=== PATIENT | male | born 1960 | race Caucasian/White ===

== ENCOUNTER 2019-01-15 18:32 | Inpatient (IN) | payer OTHER ==
[~2019-01-15] VITALS: Ht 180.3 cm; Wt 100.0 kg
[~2019-01-15 18:32] MED LIST: ACET500T98 PO; AMLO-147 PO; CLON2TAB12 PO; DIVA-48 PO; DOCU100C59 PO; ENAL10TA PO; ENAL20TA PO; ETOMIDATE 20 MG INJ ONE; GLIP5TAB13 PO; METF100010 PO; QUET400T11 PO; SERT-165 PO; TAMS-14 PO; TEMA-106 PO
[2019-01-15] MEDS ORDERED: SOD CHLORIDE 0.9% 1,000 ML IV STA ×3 (18:39→20:56)
[2019-01-15] MEDS ORDERED: LORAZEPAM 2 MG INJ IV STA (18:39)
[2019-01-15] MEDS ORDERED: PROPOFOL 100 ML IV STA (19:14)
[2019-01-15] MEDS ORDERED: PROPOFOL 100 ML ONE (19:16)
[2019-01-15] MEDS ORDERED: FENTAnyl (DRIP) 1000 mcg/100mL 100 ML IV ONE (19:30)
[2019-01-15] MEDS ORDERED: ROCURONIUM 50 MG INJ IV ONE (19:30)
[2019-01-15] MEDS ORDERED: ETOMIDATE 20 MG INJ IV ONE (19:30)
[2019-01-15] MEDS ORDERED: CEFTRIAXONE 2 GM/50 ML (PMX) 50 ML IVPB STA (19:51)
[2019-01-15] MEDS ORDERED: VANCOMYCIN 1 GM (PMX) 250 ML IVPB STA (19:51)
[2019-01-15] MEDS ORDERED: DANTROLENE 20 MG INJ IV STA (19:57)
[2019-01-15] MEDS ORDERED: DEXAMETHASONE 10 MG/ML 1 ML INJ IV ONE (20:00)
[2019-01-15] MEDS ORDERED: ACETAMINOPHEN 650 MG SUPP PR ONE ×2 (20:11→20:30)
[2019-01-15] MEDS ORDERED: DANTROLENE SODIUM 250 MG VIAL IV STA (20:14)
[2019-01-15] MEDS ORDERED: IPRATROPIUM (NEB) 0.5 MG/2.5 ML AMP INH PRN (21:00)
[2019-01-15] MEDS ORDERED: ALBUTEROL HFA 8 GM INHALER INH PRN (21:00)
[2019-01-15] MEDS ORDERED: IPRATROPIUM (HFA) 12.9 GM INHALER INH PRN (21:00)
[2019-01-15] MEDS ORDERED: MIDAZOLAM (DRIP) 50 mg/50 mL 50 ML IV STA (21:15)
[2019-01-15] MEDS: ENOXAPARIN 40 MG/0.4 ML SYG SC SCH (22:00)
[2019-01-15] MEDS ORDERED: VANCOMYCIN IV PER PHARMACY XX SCH (22:00)
[2019-01-15] MEDS ORDERED: SOD CHLORIDE 0.9% 1,000 ML IV ONE (23:30)
[2019-01-16] VITALS (57 sets, daily range): BP systolic 97–163; BP diastolic 63–112; PULSE 57–98; RESP 15–26; Ht 180.3 cm; Wt 100.0 kg
[2019-01-16] MEDS: PIPER-TAZO 3.375 GM IV (PMX) 100 ML IVPB SCH ×4 (00:23→17:01)
[2019-01-16] MEDS: SOD CHLORIDE 0.9% 1,000 ML IV SCH ×5 (00:27→17:01)
[2019-01-16] MEDS ORDERED: VANCOMYCIN 1 GM in 250 ML IVPB ONE (01:00)
[2019-01-16] MEDS: INSULIN ASPART [NOVOLOG] 3 ML PEN SC SCH ×6 (01:08→21:00)
[2019-01-16] MEDS: ACCU-CHEK XX SCH (01:49)
[2019-01-16] MEDS ORDERED: DANTROLENE 20 MG INJ IV SCH (02:00)
[2019-01-16] MEDS ORDERED: BROMOCRIPTINE 2.5 MG TAB NGT ONE (02:00)
[2019-01-16] MEDS ORDERED: DANTROLENE SODIUM 250 MG VIAL IV SCH (05:00)
[2019-01-16] MEDS: PANTOPRAZOLE 40 MG INJ IV SCH (07:04)
[2019-01-16] MEDS: ENOXAPARIN 40 MG/0.4 ML SYG SC SCH (08:29)
[2019-01-16] MEDS: MIDAZOLAM (DRIP) 50 mg/50 mL 50 ML IV SCH ×2 (10:37→18:24)
[2019-01-16] MEDS ORDERED: VANCOMYCIN 1 GM 250 ML IVPB SCH (14:00)
[2019-01-16] MEDS ORDERED: VANCOMYCIN 1.25 GM/NS 250 ML 250 ML IVPB SCH (14:00)
[2019-01-16] MEDS ORDERED: HEPARIN 5,000 UNIT/1 ML VIAL SC SCH (22:00)
[2019-01-17] VITALS (36 sets, daily range): BP systolic 120–174; BP diastolic 69–131; PULSE 61–96; RESP 14–30
[2019-01-17] MEDS: MIDAZOLAM (DRIP) 50 mg/50 mL 50 ML IV SCH ×2 (00:14→05:42)
[2019-01-17] MEDS: PIPER-TAZO 3.375 GM IV (PMX) 100 ML IVPB SCH ×5 (00:45→23:39)
[2019-01-17] MEDS ORDERED: FENTAnyl (DRIP) 1000 mcg/100mL 100 ML IV SCH (01:00)
[2019-01-17] MEDS: INSULIN ASPART [NOVOLOG] 3 ML PEN SC SCH ×6 (01:00→21:00)
[2019-01-17] MEDS: SOD CHLORIDE 0.9% 1,000 ML IV SCH ×5 (01:26→23:39)
[2019-01-17] MEDS: ACCU-CHEK XX SCH (01:45)
[2019-01-17] MEDS: ACETAMINOPHEN 650MG/20.3ML CUP NGT PRN (01:47)
[2019-01-17] MEDS: PANTOPRAZOLE 40 MG INJ IV SCH (05:42)
[2019-01-17] MEDS: ENOXAPARIN 40 MG/0.4 ML SYG SC SCH (09:10)
[2019-01-17] MEDS: VALPROATE INJ 1,000 MG in SOD CHLORIDE 0.9% 100 ML IVPB SCH (18:35)
[2019-01-18] VITALS (24 sets, daily range): BP systolic 100–161; BP diastolic 62–97; PULSE 55–74; RESP 15–30
[2019-01-18] MEDS: INSULIN ASPART [NOVOLOG] 3 ML PEN SC SCH ×6 (00:53→20:35)
[2019-01-18] MEDS: ACCU-CHEK XX SCH (01:09)
[2019-01-18] MEDS: PIPER-TAZO 3.375 GM IV (PMX) 100 ML IVPB SCH ×3 (05:10→17:25)
[2019-01-18] MEDS: VALPROATE INJ 1,000 MG in SOD CHLORIDE 0.9% 100 ML IVPB SCH ×2 (05:37→18:15)
[2019-01-18] MEDS: SOD CHLORIDE 0.9% 1,000 ML IV SCH ×2 (08:51→17:24)
[2019-01-18] MEDS: FAMOTIDINE 20 MG INJ IV SCH ×2 (08:51→20:35)
[2019-01-18] MEDS: ENOXAPARIN 40 MG/0.4 ML SYG SC SCH (08:55)
[2019-01-19] VITALS (19 sets, daily range): BP systolic 142–173; BP diastolic 65–93; PULSE 65–75; RESP 15–33
[2019-01-19] MEDS: PIPER-TAZO 3.375 GM IV (PMX) 100 ML IVPB SCH ×5 (00:19→23:57)
[2019-01-19] MEDS: SOD CHLORIDE 0.9% 1,000 ML IV SCH ×3 (00:19→16:41)
[2019-01-19] MEDS: INSULIN ASPART [NOVOLOG] 3 ML PEN SC SCH ×6 (01:00→21:00)
[2019-01-19] MEDS: ACCU-CHEK XX SCH (01:53)
[2019-01-19] MEDS: VALPROATE INJ 1,000 MG in SOD CHLORIDE 0.9% 100 ML IVPB SCH ×2 (06:18→21:54)
[2019-01-19] MEDS: FAMOTIDINE 20 MG INJ IV SCH ×2 (08:49→21:59)
[2019-01-19] MEDS: ENOXAPARIN 40 MG/0.4 ML SYG SC SCH (08:58)
[2019-01-20] VITALS (14 sets, daily range): BP systolic 132–185; BP diastolic 69–95; PULSE 62–95; RESP 16–22
[2019-01-20] MEDS: INSULIN ASPART [NOVOLOG] 3 ML PEN SC SCH ×6 (01:00→20:34)
[2019-01-20] MEDS: ACCU-CHEK XX SCH (01:44)
[2019-01-20] MEDS: SOD CHLORIDE 0.9% 1,000 ML IV SCH ×3 (05:00→23:49)
[2019-01-20] MEDS: PIPER-TAZO 3.375 GM IV (PMX) 100 ML IVPB SCH (05:48)
[2019-01-20] MEDS: VALPROATE INJ 1,000 MG in SOD CHLORIDE 0.9% 100 ML IVPB SCH ×2 (06:33→17:33)
[2019-01-20] MEDS: FAMOTIDINE 20 MG INJ IV SCH ×2 (08:41→20:16)
[2019-01-20] MEDS: ENOXAPARIN 40 MG/0.4 ML SYG SC SCH (08:43)
[2019-01-20] MEDS: hydrALAzine 20 MG INJ IV PRN (12:36)
[2019-01-20] MEDS ORDERED: hydrALAzine 20 MG INJ IV ONE (14:30)
[2019-01-20] MEDS ORDERED: DEXTROSE 50% 50 ML SYRINGE IV PRN ×2 (17:30)
[2019-01-20] MEDS ORDERED: GLUCOSE GEL 15 GRAM TUBE PO PRN ×2 (17:30)
[2019-01-20] MEDS ORDERED: GLUCAGON 1 MG INJ IM PRN (17:30)
[2019-01-20] MEDS ORDERED: GLUCOSE GEL 15 GRAM TUBE BUCCAL PRN (17:30)
[2019-01-20] MEDS: ENALAPRIL 10 MG TAB PO SCH (20:16)
[2019-01-20] MEDS ORDERED: PENDING SANTYL ORDER FOR WOUND CARE XX PRN (22:00)
[2019-01-21] VITALS (14 sets, daily range): BP systolic 108–179; BP diastolic 58–90; PULSE 59–81; RESP 15–20
[2019-01-21] MEDS: SOD CHLORIDE 0.9% 1,000 ML IV SCH ×4 (01:00→21:00)
[2019-01-21] MEDS: VALPROATE INJ 1,000 MG in SOD CHLORIDE 0.9% 100 ML IVPB SCH ×2 (05:46→18:19)
[2019-01-21] MEDS: INSULIN ASPART [NOVOLOG] 3 ML PEN SC SCH ×4 (07:35→20:54)
[2019-01-21] MEDS: FAMOTIDINE 20 MG INJ IV SCH ×2 (08:40→21:00)
[2019-01-21] MEDS: ENALAPRIL 10 MG TAB PO SCH ×2 (08:42→20:43)
[2019-01-21] MEDS: ENOXAPARIN 40 MG/0.4 ML SYG SC SCH (08:44)
[2019-01-21] MEDS: hydrALAzine 20 MG INJ IV PRN (10:32)
[2019-01-22] VITALS (15 sets, daily range): BP systolic 156–207; BP diastolic 71–113; PULSE 64–88; RESP 17–22
[2019-01-22] MEDS: VALPROATE INJ 1,000 MG in SOD CHLORIDE 0.9% 100 ML IVPB SCH (06:11)
[2019-01-22] MEDS: INSULIN ASPART [NOVOLOG] 3 ML PEN SC SCH ×4 (07:35→20:37)
[2019-01-22] MEDS: FAMOTIDINE 20 MG INJ IV SCH (09:00)
[2019-01-22] MEDS: ENALAPRIL 10 MG TAB PO SCH ×2 (09:05→20:35)
[2019-01-22] MEDS: ENOXAPARIN 40 MG/0.4 ML SYG SC SCH (09:06)
[2019-01-22] MEDS ORDERED: HALOPERIDOL 5 MG INJ IM ONE (13:30)
[2019-01-22] MEDS: HYDROCHLOROTHIAZIDE 25 MG TAB PO SCH (14:21)
[2019-01-22] MEDS: DIVALPROEX (EC) 500 MG TAB PO SCH (20:33)
[2019-01-22] MEDS ORDERED: FAMOTIDINE 20 MG INJ IV SCH (21:00)
[2019-01-22] MEDS ORDERED: FAMOTIDINE 20 MG TAB GTB SCH (22:00)
[2019-01-22] MEDS ORDERED: AMLODIPINE 10 MG TAB PO ONE (22:30)
[2019-01-23] VITALS (14 sets, daily range): BP systolic 145–211; BP diastolic 65–96; PULSE 62–85; RESP 17–19
[2019-01-23] MEDS: INSULIN ASPART [NOVOLOG] 3 ML PEN SC SCH ×4 (07:35→20:25)
[2019-01-23] MEDS: SILVER SULFADIAZINE 1% 25 GM CR TOP SCH (08:18)
[2019-01-23] MEDS: ENOXAPARIN 40 MG/0.4 ML SYG SC SCH (08:18)
[2019-01-23] MEDS: DIVALPROEX (EC) 500 MG TAB PO SCH (08:19)
[2019-01-23] MEDS: HYDROCHLOROTHIAZIDE 25 MG TAB PO SCH (08:19)
[2019-01-23] MEDS: FAMOTIDINE 20 MG TAB PO SCH ×2 (08:20→20:25)
[2019-01-23] MEDS: AMLODIPINE 10 MG TAB PO SCH (08:20)
[2019-01-23] MEDS: ENALAPRIL 20 MG TAB PO SCH ×2 (09:00→12:49)
[2019-01-23] MEDS: VALPROIC ACID LIQUID CUP 250 MG/5 ML CUP PO SCH (20:25)
[2019-01-24] VITALS (8 sets, daily range): BP systolic 115–154; BP diastolic 59–81; PULSE 60–85; RESP 16–19
[2019-01-24] MEDS: INSULIN ASPART [NOVOLOG] 3 ML PEN SC SCH ×4 (07:35→20:50)
[2019-01-24] MEDS: ENALAPRIL 20 MG TAB PO SCH (08:40)
[2019-01-24] MEDS: HYDROCHLOROTHIAZIDE 25 MG TAB PO SCH (08:40)
[2019-01-24] MEDS: AMLODIPINE 10 MG TAB PO SCH (08:40)
[2019-01-24] MEDS: FAMOTIDINE 20 MG TAB PO SCH ×2 (08:40→20:36)
[2019-01-24] MEDS: ENOXAPARIN 40 MG/0.4 ML SYG SC SCH (08:42)
[2019-01-24] MEDS: SILVER SULFADIAZINE 1% 25 GM CR TOP SCH (10:21)
[2019-01-24] MEDS: VALPROIC ACID LIQUID CUP 250 MG/5 ML CUP PO SCH ×2 (10:21→20:35)
[2019-01-25 02:00] VITALS: BP 132/58; PULSE 65; RESP 19
[2019-01-25] MEDS: INSULIN ASPART [NOVOLOG] 3 ML PEN SC SCH ×4 (07:35→20:55)
[2019-01-25 07:37] VITALS: BP 125/73; PULSE 87; RESP 18
[2019-01-25] MEDS: AMLODIPINE 10 MG TAB PO SCH (08:13)
[2019-01-25] MEDS: FAMOTIDINE 20 MG TAB PO SCH ×2 (08:14→20:49)
[2019-01-25] MEDS: HYDROCHLOROTHIAZIDE 25 MG TAB PO SCH (08:14)
[2019-01-25] MEDS: VALPROIC ACID LIQUID CUP 250 MG/5 ML CUP PO SCH ×2 (08:14→20:49)
[2019-01-25] MEDS: ENALAPRIL 20 MG TAB PO SCH (08:14)
[2019-01-25] MEDS: SILVER SULFADIAZINE 1% 25 GM CR TOP SCH (08:15)
[2019-01-25] MEDS: ENOXAPARIN 40 MG/0.4 ML SYG SC SCH (08:17)
[2019-01-25 14:08] VITALS: BP 143/108; PULSE 74; RESP 18
[2019-01-25 19:43] VITALS: BP 144/67; PULSE 68; RESP 18
[2019-01-25] MEDS: ACETAMINOPHEN 650MG/20.3ML CUP NGT PRN (20:49)
[2019-01-26 02:00] VITALS: BP 141/62; PULSE 71; RESP 18
[2019-01-26 07:17] VITALS: BP 138/64; PULSE 78; RESP 19
[2019-01-26] MEDS: ENOXAPARIN 40 MG/0.4 ML SYG SC SCH (08:09)
[2019-01-26] MEDS: INSULIN ASPART [NOVOLOG] 3 ML PEN SC SCH ×2 (08:09→11:45)
[2019-01-26] MEDS: AMLODIPINE 10 MG TAB PO SCH (08:11)
[2019-01-26] MEDS: FAMOTIDINE 20 MG TAB PO SCH (08:11)
[2019-01-26] MEDS: ENALAPRIL 20 MG TAB PO SCH (08:11)
[2019-01-26] MEDS: HYDROCHLOROTHIAZIDE 25 MG TAB PO SCH (08:11)
[2019-01-26] MEDS: VALPROIC ACID LIQUID CUP 250 MG/5 ML CUP PO SCH (08:12)
[2019-01-26] MEDS: SILVER SULFADIAZINE 1% 25 GM CR TOP SCH (08:20)
== END 2019-01-26 15:00 | disposition home health service (06) | DRG 871 ==
LOC: E/R 18:32 → ICU 20:36 → MS3 01-19 15:10
PROVIDERS: ADMIT Family Medicine; ATTEND Internal Medicine
PROC: 5A1935Z Respiratory Ventilation, Less than 24 Consecutive Hours (ICD-10-PCS; principal; 2019-01-15)
PROC: 0BH17EZ Insertion of Endotracheal Airway into Trachea, Via Natural or Artificial Opening (ICD-10-PCS; 2019-01-15)
PROC: 009U3ZX Drainage of Spinal Canal, Percutaneous Approach, Diagnostic (ICD-10-PCS; 2019-01-15)
DX: A41.9 Sepsis, unspecified organism (principal); R65.21 Severe sepsis with septic shock; G92 Toxic encephalopathy; J96.00 Acute respiratory failure, unspecified whether with hypoxia or hypercapnia; J69.0 Pneumonitis due to inhalation of food and vomit; G21.0 Malignant neuroleptic syndrome; M62.82 Rhabdomyolysis; E87.2 Acidosis; N17.9 Acute kidney failure, unspecified; R62.50 Unspecified lack of expected normal physiological development in childhood; I10 Essential (primary) hypertension; N40.0 Benign prostatic hyperplasia without lower urinary tract symptoms; E11.9 Type 2 diabetes mellitus without complications; G40.909 Epilepsy, unspecified, not intractable, without status epilepticus; R68.0 Hypothermia, not associated with low environmental temperature; D64.9 Anemia, unspecified; D69.6 Thrombocytopenia, unspecified; E78.2 Mixed hyperlipidemia; R74.0 Nonspecific elevation of levels of transaminase and lactic acid dehydrogenase [LDH]; F99 Mental disorder, not otherwise specified; I80.8 Phlebitis and thrombophlebitis of other sites; T43.505A Adverse effect of unspecified antipsychotics and neuroleptics, initial encounter; E86.0 Dehydration
CPT/HCPCS: 31500; 36415; 36600; 70450; 70551; 71045; 72125; 76705; 80048; 80053; 80061; 80164; 80307; 81001; 82140; 82306; 82550; 82803; 82945; 82962; 83036; 83540; 83605; 83615; 83735; 84100; 84157; 84436; 84443; 84479; 84484; 85025; 85610; 85730; 86704; 86706; 86803; 87070; 87081; 87340; 89051; 92526; 92610; 93005; 93306; 93971; 94002; 94003; 94770; 95819; 96365; 96375; 97110; 97116; 97162; 97530; C9113; J0360; J0696; J1100; J1630; J1650; J1815; J2060; J2250; J2543; J3010; J3370; J7030